=== PATIENT | male | born 1990 | race Caucasian/White ===

== ENCOUNTER 2019-03-07 14:52 | Emergency (ER) | payer OTHER ==
[~2019-03-07] VITALS: Ht 182.9 cm; Wt 80.0 kg
[2019-03-07] MEDS ORDERED: LORAZEPAM 0.5 MG TAB PO ONE (15:00)
[2019-03-07 15:03] VITALS: BP 104/63; PULSE 71; RESP 16; Ht 182.9 cm; Wt 80.0 kg
== END 2019-03-07 15:45 | disposition home or self-care (01) ==
LOC: E/R 14:52
DX: F41.9 Anxiety disorder, unspecified (principal); F99 Mental disorder, not otherwise specified; Z91.14 Patient's other noncompliance with medication regimen
CPT/HCPCS: Z7502; Z7610; 99283